=== PATIENT | female | born 1950 | race Caucasian/White ===

== ENCOUNTER 2020-12-15 04:29 | Emergency (ER) | payer OTHER ==
[~2020-12-15] VITALS: Ht 160 cm; Wt 100.0 kg
[~2020-12-15 04:29] MED LIST: BENA20TA10; DICL75TA5; GABA-533; INSLAN; METF-416
[2020-12-15] MEDS ORDERED: INSULIN REGULAR (HUMULIN R) 300UNITS/3ML VIAL SUBCUT ONE (05:00)
[2020-12-15] MEDS ORDERED: SODIUM CHLORIDE 0.9% 1,000 ML IV ONE ×2 (05:00→08:15)
[2020-12-15 05:39] LABS: CHLORIDE 100 mEq/L (98-107)
[2020-12-15 05:40] LABS: HEMATOCRIT. 30.9 % (36.0-48.0); HEMOGLOBIN. 9.8 g/dL (12.0-16.0); MEAN CORPUSCULAR HEMOGLOBIN 27.3 pg (28.0-32.0); MEAN CORPUSCULAR VOLUME 86.1 fL (81.0-99.0); MEAN PLATELET VOLUME 10.9 fl (7.4-10.4); PLATELET 135 x1000/uL (130-400); RED BLOOD CELL COUNT 3.59 mill/uL (4.2-5.4); RED CELL DISTRIBUTION WIDTH 14.4 % (11.6-14.6)
[2020-12-15 05:46] LABS: BETA HYDROXYBUTYRATE 2.7 mMol/L (0.0-0.3)
[2020-12-15 05:50] LABS: CLARITY URINE CLOUDY (CLEAR); COLOR URINE YELLOW (YELLOW); KETONES URINE 1+ (NEGATIVE); LEUKOCYTE ESTERASE URINE NEGATIVE (NEGATIVE); NITRITE URINE NEGATIVE (NEGATIVE); OCCULT BLOOD URINE 1+ (NEGATIVE); PROTEIN URINE 3+ (NEGATIVE); SPECIFIC GRAVITY URINE 1.029 (1.005-1.030)
[2020-12-15 07:42] LABS: PLATELET ESTIMATE NORMAL
[2020-12-15] MEDS ORDERED: LEVOFLOXACIN 750MG PREMIX 150 ML IV ONE (08:15)
[2020-12-15 12:15] VITALS: BP 140/50
== END 2020-12-15 12:42 | disposition short-term general hospital (02) ==
LOC: ER 04:29
DX: E11.65 Type 2 diabetes mellitus with hyperglycemia (principal); N39.0 Urinary tract infection, site not specified; I10 Essential (primary) hypertension; Z79.4 Long term (current) use of insulin
CPT/HCPCS: 36415; 71045; 80053; 81003; 82010; 82962; 83605; 83690; 84145; 84484; 85025; 87040; 87086; 93005; 96361; 96365; 99285; J1815; J1956; J7030

== ENCOUNTER 2021-03-22 01:31 | Emergency (ER) | payer OTHER ==
[~2021-03-22] VITALS: Ht 157.5 cm; Wt 102.0 kg
[2021-03-22] MEDS ORDERED: ACETAMINOPHEN 325MG TABLET PO STA (02:15)
[2021-03-22] MEDS ORDERED: PIPERACILLIN/TAZ 3.375G PREMIX 50 ML IV ONE (02:15)
[2021-03-22] MEDS ORDERED: SODIUM CHLORIDE 0.9% 1,000 ML IV ONE (02:15)
[2021-03-22] MEDS ORDERED: VANCOMYCIN 1 G PREMIX 200 ML IV ONE (02:15)
[2021-03-22] MEDS ORDERED: ONDANSETRON HCL 4MG/2ML INJ IV STA (02:15)
[2021-03-22] MEDS ORDERED: MORPHINE SULFATE 4 MG/ML CPJ (NOT FOR IM USE) IV STA (02:15)
[2021-03-22 02:55] LABS: CHLORIDE 101 mEq/L (98-107)
[2021-03-22 03:08] LABS: BASOPHILS % 0.9 % (0.0-2.0); HEMATOCRIT. 27.9 % (36.0-48.0); HEMOGLOBIN. 8.8 g/dL (12.0-16.0); LYMPHOCYTES % 10.1 % (20.0-50.0); MEAN CORPUSCULAR HEMOGLOBIN 29.1 pg (28.0-32.0); MEAN CORPUSCULAR VOLUME 91.8 fL (81.0-99.0); MONOCYTES % 3.2 % (2.0-8.0); NEUTROPHILS % 85.8 % (40.0-76.0); PLATELET 200 x1000/uL (130-400); RED BLOOD CELL COUNT 3.04 mill/uL (4.2-5.4); RED CELL DISTRIBUTION WIDTH 20.2 % (11.6-14.6)
[2021-03-22 07:06] LABS: CLARITY URINE CLOUDY (CLEAR); COLOR URINE YELLOW (YELLOW); KETONES URINE NEGATIVE (NEGATIVE); LEUKOCYTE ESTERASE URINE NEGATIVE (NEGATIVE); NITRITE URINE NEGATIVE (NEGATIVE); OCCULT BLOOD URINE TRACE (NEGATIVE); PROTEIN URINE 3+ (NEGATIVE); SPECIFIC GRAVITY URINE 1.018 (1.005-1.030); UROBILINOGEN URINE 0.2 E.U./dL (0.2-1.0)
[2021-03-22 08:29] VITALS: BP 133/61
== END 2021-03-22 09:02 | disposition short-term general hospital (02) ==
LOC: ER 01:31
DX: A41.9 Sepsis, unspecified organism (principal); J18.9 Pneumonia, unspecified organism; E11.9 Type 2 diabetes mellitus without complications; H54.7 Unspecified visual loss; Z79.4 Long term (current) use of insulin; Z98.890 Other specified postprocedural states
CPT/HCPCS: 36415; 71045; 74176; 80053; 81003; 83605; 84145; 85025; 87040; 93005; 96365; 96367; 99291; J2543; J3370; J7030

== ENCOUNTER 2022-09-14 14:21 | Emergency (ER) | payer OTHER ==
[~2022-09-14] VITALS: Ht 149.9 cm; Wt 55.0 kg
[~2022-09-14 14:21] MED LIST changes: +BENA-8; -BENA20TA10
[2022-09-14] MEDS ORDERED: ACETAMINOPHEN 325MG TABLET PO ONE (15:00)
[2022-09-14 15:11] VITALS: BP 164/97
== END 2022-09-14 16:59 | disposition home or self-care (01) ==
LOC: ER 14:21
DX: M17.0 Bilateral primary osteoarthritis of knee (principal)
CPT/HCPCS: 73562; 99283

== ENCOUNTER 2023-10-24 17:52 | Emergency (ER) | payer OTHER, MEDICAID ==
[~2023-10-24] VITALS: Ht 162.6 cm; Wt 70.0 kg
[~2023-10-24 17:52] MED LIST changes: -GABA-533; +GABA-534
[2023-10-24 17:59] VITALS: O2SAT 95
[2023-10-24] MEDS ORDERED: SODIUM CHLORIDE 0.9% 1,000 ML IV ONE ×2 (18:00→20:15)
[2023-10-24 19:00] LABS: BASOPHILS % 0.7 % (0.0-2.0); EOSINOPHILS % 1.4 % (0.0-5.0); HEMATOCRIT. 35.5 % (36.0-48.0); HEMOGLOBIN. 11.3 g/dL (12.0-16.0); LYMPHOCYTES % 28.2 % (20.0-50.0); MEAN CORPUSCULAR HEMOGLOBIN 30.3 pg (28.0-32.0); MEAN CORPUSCULAR HGB CONC 31.9 g/dL (31.0-37.0); MEAN PLATELET VOLUME 10.5 fl (7.4-10.4); NEUTROPHILS % 66.7 % (40.0-76.0); PLATELET 226 x1000/uL (130-400); RED BLOOD CELL COUNT 3.73 mill/uL (4.2-5.4); RED CELL DISTRIBUTION WIDTH 14.4 % (11.6-14.6)
[2023-10-24] MEDS ORDERED: NA PHOS,M-B/NA PHOS,DI-BA ENEMA 118ML PR ONE (19:15)
[2023-10-24 19:21] LABS: ALANINE AMINOTRANSFERASE 13 IU/L (10-49); ALBUMIN 3.8 g/dL (3.2-4.8); ASPARTATE AMINOTRANSFERASE 44 IU/L (<34); BILIRUBIN TOTAL 0.3 mg/dL (0.1-1.0); CARBON DIOXIDE 14 mEq/L (21-32); CHLORIDE 101 mEq/L (98-107); CREATININE 1.9 mg/dL (0.6-1.0); GLUCOSE 228 mg/dL (70-105); PROTEIN TOTAL 6.5 g/dL (6.0-8.3); SODIUM 128 mEq/L (136-145); UREA NITROGEN BLOOD 43 mg/dL (9-23)
[2023-10-24 19:42] LABS: POTASSIUM 6.3 mEq/L (3.5-5.1)
[2023-10-24] MEDS ORDERED: SODIUM POLYSTYRENE SULFONATE 15 G/60 ML BOT PO ONE (20:15)
[2023-10-24] MEDS ORDERED: SODIUM BICARBONATE 8.4% 1 MEQ/ML 50ML SYR IV ONE (20:15)
[2023-10-24] MEDS ORDERED: DEXTROSE 50% WATER 50ML SYRINGE IV ONE (20:15)
[2023-10-24] MEDS ORDERED: INSULIN REGULAR (HUMULIN R) 300UNITS/3ML VIAL IV ONE (20:15)
[2023-10-24] MEDS ORDERED: SODIUM POLYSTYRENE SULFONATE 15 G/60 ML BOT PO NR (21:45)
[2023-10-24] MEDS ORDERED: SODIUM BICARBONATE 8.4% 1 MEQ/ML 50ML SYR IV NR (21:45)
[2023-10-24] MEDS ORDERED: INSULIN REGULAR (HUMULIN R) 300UNITS/3ML VIAL IV NR (21:45)
[2023-10-24] MEDS ORDERED: DEXTROSE 50% WATER 50ML SYRINGE IV NR (21:45)
[2023-10-24 21:57] LABS: CALCIUM 8.8 mg/dL (8.7-10.4); CREATININE 1.8 mg/dL (0.6-1.0); POTASSIUM 4.9 mEq/L (3.5-5.1)
[2023-10-25 03:31] VITALS: BP 146/58; PULSE 74; RESP 18; TEMP 97.6
== END 2023-10-25 03:36 | disposition home or self-care (01) ==
LOC: ER 17:52
DX: R10.33 Periumbilical pain (principal); I50.9 Heart failure, unspecified; F32.9 Major depressive disorder, single episode, unspecified; E11.9 Type 2 diabetes mellitus without complications
CPT/HCPCS: 99284; 74176; 96360; 96361; 80053; 82962; 85025; 36415; 80048; J3490; J7030; J1815

== ENCOUNTER 2025-01-04 18:39 | Emergency (ER) | payer OTHER, MEDICAID ==
[~2025-01-04] VITALS: Ht 157.5 cm; Wt 72.0 kg
[2025-01-04 18:44] VITALS: O2SAT 91
[2025-01-04 19:49] LABS: BASOPHILS % 0.5 % (0.0-2.0); EOSINOPHILS % 0.5 % (0.0-5.0); HEMATOCRIT. 28.9 % (36.0-48.0); HEMOGLOBIN. 9.7 g/dL (12.0-16.0); LYMPHOCYTES % 10.5 % (20.0-50.0); MEAN CORPUSCULAR HGB CONC 33.5 g/dL (31.0-37.0); MEAN CORPUSCULAR VOLUME 95.5 fL (81.0-99.0); MEAN PLATELET VOLUME 8.7 fl (7.4-10.4); MONOCYTES % 5.9 % (2.0-8.0); NEUTROPHILS % 82.6 % (40.0-76.0); PLATELET 174 x1000/uL (130-400); RED BLOOD CELL COUNT 3.02 mill/uL (4.2-5.4); RED CELL DISTRIBUTION WIDTH 14.3 % (11.6-14.6); WHITE BLOOD COUNT 7.7 x1000/uL (4.5-11.0)
[2025-01-04 19:58] LABS: CALCIUM 8.9 mg/dL (8.7-10.4)
[2025-01-04 20:04] LABS: AMMONIA < 17 uMol/L (<32)
[2025-01-04 20:05] LABS: CREATININE 3.2 mg/dL (0.6-1.0)
[2025-01-04 20:56] LABS: CLARITY URINE CLEAR (CLEAR); COLOR URINE YELLOW (YELLOW); GLUCOSE URINE 3+ (NEGATIVE); KETONES URINE NEGATIVE (NEGATIVE); LEUKOCYTE ESTERASE URINE NEGATIVE (NEGATIVE); NITRITE URINE NEGATIVE (NEGATIVE); OCCULT BLOOD URINE TRACE (NEGATIVE); PROTEIN URINE 4+ (NEGATIVE); SPECIFIC GRAVITY URINE 1.015 (1.005-1.030); UROBILINOGEN URINE 0.2 E.U./dL (0.2-1.0)
[2025-01-04] MEDS: SODIUM CHLORIDE 0.9% 1,000 ML IV ONE (21:13)
[2025-01-04 21:20] LABS: BACTERIA URINE NONE SEEN; SQUAMOUS EPITHELIAL CELL URINE RARE /lpf (RARE/1+); WBC URINE 0-2 /hpf (0-2)
[2025-01-04] MEDS: HALOPERIDOL 5MG TABLET PO ONE (22:26)
[2025-01-04] MEDS: HYDRALAZINE 20MG/ML VIAL IV ONE (22:26)
[2025-01-05] MEDS: AZITHROMYCIN 500MG/250ML 250 ML IV NR (02:00)
[2025-01-05] MEDS ORDERED: LORAZEPAM 0.5MG TABLET PO PRN (02:00)
[2025-01-05] MEDS ORDERED: ACETAMINOPHEN 325MG TABLET PO PRN ×2 (02:00)
[2025-01-05] MEDS ORDERED: IPRATROPIUM/ALBUTEROL 0.5-3(2.5)MG/3ML NEB HHN PRN (02:00)
[2025-01-05] MEDS ORDERED: GUAIFENESIN 200MG/10ML SUGAR FREE UDC PO PRN (02:00)
[2025-01-05] MEDS ORDERED: MAGNESIUM/ALUMINUM HYDROXIDE/SIMETHICONE 30ML UDC PO PRN (02:00)
[2025-01-05] MEDS ORDERED: CLONIDINE 0.1MG TABLET PO PRN (02:00)
[2025-01-05] MEDS ORDERED: ONDANSETRON HCL 4MG/2ML INJ IV PRN (02:00)
[2025-01-05] MEDS ORDERED: LACTULOSE 20G/30ML UDC PO PRN (02:15)
[2025-01-05] MEDS ORDERED: DEXTROSE 50% WATER 50ML SYRINGE IV PRN (02:15)
[2025-01-05] MEDS: LISINOPRIL 10MG TABLET PO SCH (02:34)
[2025-01-05] MEDS: AMLODIPINE 5MG TABLET PO SCH (02:34)
[2025-01-05] MEDS: CEFTRIAXONE 1GM/50ML 50 ML IV NR (02:35)
[2025-01-05] MEDS: DEXT 5%/0.9% NACL 1,000 ML IV NR (03:28)
[2025-01-05] MEDS: FAMOTIDINE 20MG/2ML VIAL IV SCH (03:41)
[2025-01-05 05:18] LABS: HEMATOCRIT. 28.6 % (36.0-48.0); HEMOGLOBIN. 9.8 g/dL (12.0-16.0); MEAN CORPUSCULAR HGB CONC 34.2 g/dL (31.0-37.0); MEAN CORPUSCULAR VOLUME 93.5 fL (81.0-99.0); MEAN PLATELET VOLUME 8.6 fl (7.4-10.4); PLATELET 206 x1000/uL (130-400); RED BLOOD CELL COUNT 3.06 mill/uL (4.2-5.4); RED CELL DISTRIBUTION WIDTH 14.3 % (11.6-14.6); WHITE BLOOD COUNT 8.5 x1000/uL (4.5-11.0)
[2025-01-05 05:19] VITALS: BP 136/51; PULSE 70; RESP 18; TEMP 37; O2SAT 99
[2025-01-05 05:27] LABS: CARBON DIOXIDE 20 mEq/L (21-32); CHLORIDE 102 mEq/L (98-107); POTASSIUM 4.3 mEq/L (3.5-5.1); SODIUM 133 mEq/L (136-145)
[2025-01-05 05:28] LABS: CALCIUM 8.5 mg/dL (8.7-10.4)
[2025-01-05 05:32] LABS: IRON 31 ug/dL (50-170)
[2025-01-05 05:33] LABS: GLUCOSE 245 mg/dL (70-105); TRIGLYCERIDE 65 mg/dL (0-150); UREA NITROGEN BLOOD 52 mg/dL (9-23)
[2025-01-05 05:34] LABS: ALANINE AMINOTRANSFERASE < 7 IU/L (10-49); ALBUMIN 3.4 g/dL (3.2-4.8); ASPARTATE AMINOTRANSFERASE 11 IU/L (<34); LDL CHOLESTEROL 49 mg/dL (5-100)
[2025-01-05 05:35] LABS: BILIRUBIN TOTAL 0.3 mg/dL (0.1-1.0); CHOLESTEROL 156 mg/dL (<200); CREATINE KINASE 67 IU/L (34-145); HDL CHOLESTEROL 77 mg/dL (>65)
[2025-01-05 05:36] LABS: PROTEIN TOTAL 5.8 g/dL (6.0-8.3); TOTAL IRON BINDING CAPACITY 197 ug/dl (250-425)
[2025-01-05 05:37] LABS: T4 FREE 1.36 ng/dL (0.89-1.76); THYROID STIMULATING HORMONE 11.38 uIU/mL (0.55-4.78)
[2025-01-05 05:39] LABS: FERRITIN 532 ng/mL (10-291); TRIOIODOTHYRONINE TOTAL 0.47 ng/ml (0.60-1.81)
[2025-01-05 05:40] LABS: VITAMIN B12 SERUM 342 pg/mL (211-911)
[2025-01-05 05:50] LABS: DIFFERENTIAL COMMENT 1
[2025-01-05] MEDS ORDERED: HYDRALAZINE HCL 25MG TABLET PO SCH (06:00)
[2025-01-05 06:03] LABS: BILIRUBIN DIRECT < 0.1 mg/dL (<=3.0)
[2025-01-05 06:04] LABS: TROPONIN I HIGH SENSITIVITY 50 ng/L (3.0-34)
[2025-01-05 06:05] LABS: PROTHROMBIN TIME 11.2 sec (9.6-11.0)
[2025-01-05] MEDS ORDERED: LEVOTHYROXINE SODIUM 25MCG TABLET PO SCH (07:50)
[2025-01-05] MEDS ORDERED: INSULIN LISPRO 100 UNITS/ML SUBCUT SCH (08:20)
[2025-01-05 08:49] LABS: PLATELET ESTIMATE NORMAL
[2025-01-05 08:50] LABS: ANISOCYTOSIS 1+
[2025-01-05] MEDS ORDERED: FERROUS SULFATE 325MG TABLET PO SCH (09:00)
[2025-01-05] MEDS ORDERED: ENOXAPARIN 30MG/0.3ML SYR SUBCUT SCH (09:00)
[2025-01-05] MEDS ORDERED: BLOOD SUGAR DIAGNOSTIC STRIP TEST SCH (09:00)
[2025-01-05] MEDS ORDERED: MIRTAZAPINE 15MG TABLET PO SCH (21:00)
[2025-01-05] MEDS ORDERED: ATORVASTATIN CALCIUM 10MG TABLET PO SCH (21:00)
== END 2025-01-05 05:35 | disposition short-term general hospital (02) ==
LOC: ER 18:39
DX: I67.4 Hypertensive encephalopathy (principal); I13.2 Hypertensive heart and chronic kidney disease with heart failure and with stage 5 chronic kidney disease, or end stage renal disease; I48.91 Unspecified atrial fibrillation; I50.9 Heart failure, unspecified; N17.9 Acute kidney failure, unspecified; N18.6 End stage renal disease; F41.9 Anxiety disorder, unspecified; E87.1 Hypo-osmolality and hyponatremia; E11.51 Type 2 diabetes mellitus with diabetic peripheral angiopathy without gangrene; E11.319 Type 2 diabetes mellitus with unspecified diabetic retinopathy without macular edema; E11.22 Type 2 diabetes mellitus with diabetic chronic kidney disease; Z66 Do not resuscitate; Z74.01 Bed confinement status; Z79.899 Other long term (current) drug therapy; Z98.890 Other specified postprocedural states; Z99.2 Dependence on renal dialysis
CPT/HCPCS: 99291; 96365; 70450; 96361; 96375 ×2; 80048 ×2; 81003; 82140; 85025 ×2; 36415 ×2; 71045; 93005; 96368; 93970; 76770; 80061; 80076; 82550; 82607; 82728; 83036; 84439; 84480; 83540; 83550; 83605; 83735; 83930; 84100; 84443; 85610; 84484; 84145; J0360; J7030; J0456; J0696; J3490